=== PATIENT | male | born 1960 | race Caucasian/White ===

== ENCOUNTER 2017-08-12 14:43 | Outpatient (CLI) | payer BC | END 2017-08-12 14:44 | disposition home or self-care (01) | LOC: LABBT 14:43 | PROVIDERS: ATTEND Neurological Surgery | DX: Z01.818 Encounter for other preprocedural examination (principal); M54.12 Radiculopathy, cervical region | CPT/HCPCS: 93005; 93010 ==

== ENCOUNTER 2017-08-17 05:54 | Day surgery (SDC) | payer BC ==
[2017-08-12 15:07] VITALS: BMI 26.6
--- NOTE | 2017-08-16 21:54 | HP ---
HISTORY OF PRESENT ILLNESS: Mr. Starr is known to us for previous consultation for cervical ra diculopathy, returns with C-spine MRI from [facility], which reveals scattered foraminal stenos is, most significantly at C5 through C7. These fit his patterns of both C6 and C7 radiculopathy and he presents for discussion of possible surgery. He has treated this with a remote injections previ ously, but also physical therapy and chiropractics and does not feel it helped much and would like t o pursue the surgery if possible. PAST MEDICAL HISTORY: TMJ, back problems, neck problems, seasonal allergies, hypertension. ALLERGIES: To TYPHOID VACCINE, TETANUS VACCINE. PHYSICAL EXAMINATION: GENERAL: Patient is alert and oriented x3. NEUROLOGIC: Gait is normal. No ataxia. Upper extremity motor exam is normal. ASSESSMENT: Cervical radiculopathy. PLAN: Patient met with Dr. Hager, reviewed imaging, ultimately advocated for a C5 through C7 ACDF. He explained to the patient the risks, benefits, and alternatives to the procedure. The patient ex pressed understanding and would like to move forward with surgery as discussed. The patient is ment ally competent and capable of making medical decisions for himself and we will move forward with gina demarco as planned. Caleb Sweet PA-C, dictating for Dr. Hager.
[2017-08-17] MEDS ORDERED: Midazolam HCl 2 mg/2 ml Vial ONE (06:19)
[2017-08-17] MEDS ORDERED: Fentanyl 100 MCG/2 ML VIAL ONE ×4 (06:19→10:54)
[2017-08-17] MEDS ORDERED: Sodium Chloride 0.9% 0 ML ONE (07:14)
[2017-08-17] MEDS ORDERED: Thrombin 5000 UNITS/5 ML VIAL ONE (07:14)
[2017-08-17] MEDS ORDERED: Propofol 200 MG/20 ML VIAL ONE (07:56)
[2017-08-17] MEDS ORDERED: ePHEDrine/0.9% NaCl/PF SYRINGE 50 mg/10 ml ONE (07:56)
[2017-08-17] MEDS ORDERED: Lidocaine 2% PF 10 ML AMP (For Epidural Use) ONE (07:56)
[2017-08-17] MEDS ORDERED: Dexamethasone 20 MG/5 ML VIAL ONE (07:56)
[2017-08-17] MEDS ORDERED: PHENYLEPHRINE-NS 100 MCG/ML 10 ML SYRINGE ONE (07:56)
[2017-08-17] MEDS ORDERED: Ondansetron HCl/PF 4 MG/2 ML Vial ONE (07:56)
[2017-08-17] MEDS ORDERED: Glycopyrrolate 0.2 MG/ML 5 ML SYRINGE ONE (07:56)
--- NOTE | 2017-08-17 08:22 | PRG ---
DATE OF SERVICE: 08/17/2017 SUBJECTIVE: Mr. Starr is a 57-year-old gentleman known to us for an outpatient evaluation for cervical radiculopathy. Caleb Sweet PA-C met with him in the clinic. I talked to him on the p jef and this morning, I met with him in person prior to surgery to discuss his imaging and his diag nosis. His symptoms and the planned surgical procedure, which is a 2-level ACDF, spanning C5-C7. I reviewed with him all of these details. I answered all of his questions. He did offer informed co nsent after reviewing with him all the risks, benefits and alternatives to the surgical procedure. We will move forward accordingly this morning with an anterior cervical diskectomy and fusion at C5- C7.
--- NOTE | 2017-08-17 09:17 | OP ---
DATE OF PROCEDURE: 08/17/2017 SURGEON: Andreas Hager M.D. LABOR/EXCAVATOR: Caleb Sweet PA-C. INDICATION: Pain. PREOPERATIVE DIAGNOSIS: Cervical radiculopathy. PROCEDURE PERFORMED: Anterior cervical discectomy and fusion, spanning C5-C7. ANESTHESIA: General. TECHNIQUE: The patient was brought into the operating room and placed under general anesthesia. He was placed on the table in the supine position. A transverse incision was planned over the lateral aspect of the neck on the right. After prepping and draping and after an appropriate operative nancy se, the incision was created. The underlying platysma muscles identified and incised. A blunt tiss ue plane anterior to the sternocleidomastoid muscle was used to gain access to the prevertebral spac e. After placing self-retaining retractors and confirming the appropriate location, an annulotomy w as performed in the C6-C7 disk space. All disk material as well as anterior and posterior osteophyt es were removed. After complete decompression, a 6 mm lordotic PEEK cage packed with allograft and autograft material was placed within the interbody space. We then redirected our attention to the l evel above at C5-C6. An annulotomy was performed in the disk. All disk material as well as osteoph ytes were removed. After complete decompression, a 6 mm lordotic PEEK cage packed with allograft an d autograft material was placed within the interbody space. An anterior cervical plate was then fas hioned in front of the spine and secured with a total of 5 screws. The wound was irrigated. Hemost asis was maintained throughout. The wound was then closed in anatomic layers and a pressure dressin g was applied. There were no known procedural complications.
[2017-08-17] MEDS ORDERED: Acetaminophen/Codeine 30-300mg Tablet ONE (11:38)
== END 2017-08-17 14:30 | disposition home or self-care (01) ==
LOC: SDC 05:54
PROVIDERS: ATTEND Neurological Surgery
PROC: 0RT30ZZ Resection of Cervical Vertebral Disc, Open Approach (ICD-10-PCS; principal; 2017-08-17)
PROC: 0RG2070 Fusion of 2 or more Cervical Vertebral Joints with Autologous Tissue Substitute, Anterior Approach, Anterior Column, Open Approach (ICD-10-PCS; principal; 2017-08-17)
PROC: 0RG20A0 Fusion of 2 or more Cervical Vertebral Joints with Interbody Fusion Device, Anterior Approach, Anterior Column, Open Approach (ICD-10-PCS; principal; 2017-08-17)
DX: M54.12 Radiculopathy, cervical region (principal); M26.609 Unspecified temporomandibular joint disorder, unspecified side; I10 Essential (primary) hypertension; Z79.899 Other long term (current) drug therapy; Z88.7 Allergy status to serum and vaccine; Z88.6 Allergy status to analgesic agent
CPT/HCPCS: 76001; 96374; A4216; C1713; J1100; J1170; J2001; J2250; J2405; J2704; J3010; J3490

== ENCOUNTER 2017-09-29 08:04 | Outpatient (CLI) | payer BC ==
--- NOTE | 2017-09-29 09:28 | RAD ---
CERVICAL SPINE THREE VIEWS: History: 57-year-old male with cervical radiculopathy, prior neck surgery. FINDINGS: Anterior cervical fusion changes at C5, C6, and C7. Minimal anterolisthesis of C7 on T1. No preverte bral soft tissue swelling. IMPRESSION: Minimal anterolisthesis of C7 on T1 which was not definitely apparent at the time of the prior MRI e xamination of 02-25-08. Anterior cervical fusion changes at C5, C6, and C7. POS: AFTAB
== END 2017-09-29 08:05 | disposition home or self-care (01) ==
LOC: TBSIIMAG 08:04
PROVIDERS: ATTEND Neurological Surgery
DX: M54.12 Radiculopathy, cervical region (principal); M43.12 Spondylolisthesis, cervical region; Z98.1 Arthrodesis status
CPT/HCPCS: 72040

== ENCOUNTER 2020-04-10 14:44 | Outpatient (CLI) | payer OTHER ==
--- NOTE | 2020-04-10 16:00 | MRI ---
Exam: MRI cervical spine without contrast HISTORY: Cervical radiculopathy, neck pain with bilateral shoulder pain. Previous cervical fusion. COMPARISON: 02/25/2008 FINDINGS: Cervical fusion from C5 through C7 with associated metallic susceptibly artifact. Limited evaluation of the marrow signal at these levels. Remaining cervical spine and upper thoracic spine demonstrate appropriate T1 marrow signal intensity. No fracture. No significant STIR hyperintensity t o suggest vertebral body edema or ligamentous injury. Spondylolisthesis: 3.1 mm of anterolisthesis of C7 upon T1 Visualized brain parenchyma, cervicomedullary junction, cervical cord and the upper thoracic cord h ave a normal size and signal intensity C2-C3: No significant central canal stenosis. Right neural foramen is patent. Mild left foraminal aby rowing due to uncovertebral and facet hypertrophy C3-C4: Broad-based disc bulge effaces the thecal sac. Minimal contact upon the ventral cord. Mild everardo tral canal stenosis without cord hyperintensity. Mild bilateral foraminal narrowing due to uncovertebral hypertrophy C4-C5: Broad-based disc bulge abuts the thecal sac. Subarachnoid space is nearly effaced. Minimal con tact upon the cervical cord. Mild central canal stenosis without cord signal abnormality. Moderate to severe right and moderate left foraminal narrowing due to uncovertebral hypertrophy. Right facet h ypertrophy contributes right neural foraminal narrowing C5-C6: Broad-based osteophyte ridge with a right paracentral component. Moderate central canal stenos is. Moderate to severe right and moderate left foraminal narrowing due to uncovertebral hypertrophy C6-C7: Broad-based osteophyte ridge abuts the thecal sac. Mild central canal stenosis. Moderate bilat eral neural foraminal narrowing C7-T1: No significant central canal stenosis. Mild bilateral neural foraminal narrowing. IMPRESSION: 1 . Cervical fusion from C5 through C7. 2. Grade 1 anterolisthesis of C7 upon T1 3. Varying degrees of central canal stenosis as described above. 4. Multilevel significant neural foraminal narrowing as detailed above. Transcribed Date/Time: 04/10/2020 6:29 PM
== END 2020-04-10 14:45 | disposition home or self-care (01) ==
LOC: TBSIIMAG 14:44
PROVIDERS: ATTEND Neurological Surgery
DX: M54.12 Radiculopathy, cervical region (principal); M43.13 Spondylolisthesis, cervicothoracic region; M48.02 Spinal stenosis, cervical region; M48.03 Spinal stenosis, cervicothoracic region; Z98.1 Arthrodesis status
CPT/HCPCS: 72141

== ENCOUNTER 2020-05-21 05:51 | Outpatient (CLI) | payer OTHER ==
[2020-05-22 13:10] LABS: SARS-CoV-2 MS2 Positive; SARS-CoV-2 N Gene Negative; SARS-CoV-2 S Gene Negative; SARS-CoV-2 orf1ab Negative
== END 2020-05-21 05:52 | disposition home or self-care (01) ==
LOC: LABBT 05:51
PROVIDERS: ATTEND Neurological Surgery
DX: Z01.812 Encounter for preprocedural laboratory examination (principal); Z11.59 Encounter for screening for other viral diseases; M54.12 Radiculopathy, cervical region
CPT/HCPCS: 87635; U0003

== ENCOUNTER 2020-05-21 10:30 | Inpatient (IN) | payer OTHER ==
[2020-05-16 11:50] VITALS: BMI 23.6
--- NOTE | 2020-05-23 06:20 | HP ---
HISTORY OF PRESENT ILLNESS: Mr. Starr is a 60-year-old man, known to us for prior ACDF from C5-C7, who returns now with recurrent pains and numbness in the bilateral upper extremities. He gets spasmic pains in the triceps and down into the hands with numbness distally in the fingers. He has been treating this with physical therapy, home exercises, and some medications. He is not on pain management, as in the past, as this has failed him. He returns now with a new C-spine MRI, which reveals stenosis and narrowing at the C7-T1 foramina bilaterally, that fits well with what presumes to be a pattern of pain bilateral upper extremities. PAST MEDICAL HISTORY: Significant for; 1. Hypothyroidism. 2. Hypercholesterolemia. 3. Headaches. 4. Hypertension. 5. Osteoarthritis. 6. Seasonal allergies. PAST SURGICAL HISTORY: 1. Sinus surgery. 2. Tonsillectomy. 3. ACDF. CURRENT MEDICATIONS: 1. Levothyroxine. 2. Losartan. 3. Rosuvastatin. 4. Loratadine. 5. Aleve. ALLERGIES: 1. DICLOFENAC. 2. PREDNISONE. 3. TETANUS VACCINE. PHYSICAL EXAMINATION: GENERAL: The patient is alert and oriented x3. MUSCULOSKELETAL: Cervical range of motion is limited secondary to pain. 5/5 strength in bilateral upper extremities all movements. ASSESSMENT: Cervical radiculopathy. PLAN: Dr. Hager met with the patient, reviewed imaging, and advocated for C7-T1 ACDF. He explained to the patient about risks, benefits, and alternatives to the procedure. The patient expressed understanding and elected to move forward with surgery as discussed. I do believe the patient is mentally competent and capable of making medical decisions for himself. We will move forward with surgery as planned. Job ID: [id number]
[2020-05-23] MEDS ORDERED: Thrombin 5000 UNITS/5 ML VIAL ONE (06:33)
[2020-05-23] MEDS ORDERED: Fentanyl 100 MCG/2 ML VIAL ONE ×2 (07:44→08:31)
[2020-05-23] MEDS ORDERED: Midazolam HCl 2 mg/2 ml Vial ONE (07:44)
[2020-05-23] MEDS ORDERED: Famotidine/PF 20 mg/2ml Vial ONE (07:44)
[2020-05-23] MEDS ORDERED: Tamsulosin HCl 0.4 MG CAP ONE (10:02)
--- NOTE | 2020-05-23 10:30 | OP ---
DATE OF PROCEDURE: 05/23/2020 JAVA LEAD ARCHITECT: Caleb Sweet PA-C INDICATION: Pain. DIAGNOSIS: Cervical spondylolisthesis with radiculopathy. PROCEDURES PERFORMED: Anterior cervical diskectomy and fusion, C7-T1; exploration of fusion and removal of hardware spanning C5 through C7. ANESTHESIA: General. DESCRIPTION OF PROCEDURE: The patient was brought into the operating room and placed under general anesthesia. He was placed on the table in the supine position. A transverse incision was planned on the right just above the collarbone. After prepping and draping and after an appropriate preoperative pause, the incision was created. The underlying platysma muscle was identified as was scar tissue from the patient's prior surgical procedure. An anterior cervical plane was established anterior to the sternocleidomastoid muscle, where we were able to gain access to the C7-T1 space. An annulotomy was performed in the disk space. All disk material was removed as were anterior and posterior osteophytes. After completing the decompression, an 8-mm lordotic PEEK cage packed with allograft and autograft material was placed within the interbody space. We then redirected our attention to the plate placed above, where we identified the plate as well as 5 screws that were placed previously. All the hardware was removed. A single anterior cervical plate was then fashioned to the front of the spine spanning C7 through T1 and secured with 4 fixed screws. Midline and lateral structures were inspected and found to be free from significant trauma. The wound was irrigated. Hemostasis was maintained throughout. The wound was then closed in anatomic layers, and a pressure dressing was applied. There were no known procedural complications. Job ID: [id number]
[2020-05-23] MEDS ORDERED: EPHEDRINE 25 MG/5 ML SYRINGE ONE (10:54)
[2020-05-23] MEDS ORDERED: Glycopyrrolate 0.2 MG/ML 5 ML SYRINGE ONE (10:54)
[2020-05-23] MEDS ORDERED: Ondansetron PF 4 MG/2 ML Vial ONE (10:54)
[2020-05-23] MEDS ORDERED: Lidocaine 1% PF 5 ML VIAL ONE (10:54)
[2020-05-23] MEDS ORDERED: PROPOFOL 200 MG/20 ML VIAL ONE (10:54)
[2020-05-23] MEDS ORDERED: PHENYLEPHRINE-NS 100 MCG/ML 10 ML SYRINGE ONE (10:54)
[2020-05-23] MEDS ORDERED: Rocuronium Bromide 10 MG/ML (10ML VIAL) ONE (10:54)
[2020-05-23] MEDS ORDERED: Ketorolac Tromethamine 30 MG/ML VIAL ONE (10:54)
[2020-05-23] MEDS ORDERED: Dexamethasone 20 MG/5 ML VIAL ONE (10:54)
--- NOTE | 2020-05-23 12:51 | EKG ---
Test Reason : PREOP Blood Pressure : / mmHG Vent. Rate : 090 BPM Atrial Rate : 090 BPM P-R Int : 138 ms QRS Dur : 084 ms QT Int : 358 ms P-R-T Axes : 074 043 049 degrees QTc Int : 437 ms Normal sinus rhythm Normal ECG When compared with ECG of 12-AUG-2017 15:26, T wave inversion no longer evident in Inferior leads Confirmed by MARQUES TYSON, DR. Maravilla ([id number]) on 05/23/2020 12:51:06 PM Referred By: EDILIA Confirmed By:DR. Taiwo MOHAN MD
== END 2020-05-23 19:05 | disposition home or self-care (01) | DRG 473 ==
LOC: SURG A 05-23 06:12
PROVIDERS: ADMIT Neurological Surgery; ATTEND Neurological Surgery
PROC: 0RG10A0 Fusion of Cervical Vertebral Joint with Interbody Fusion Device, Anterior Approach, Anterior Column, Open Approach (ICD-10-PCS; principal; 2020-05-23)
PROC: 0RB30ZZ Excision of Cervical Vertebral Disc, Open Approach (ICD-10-PCS; 2020-05-23)
PROC: 0RP104Z Removal of Internal Fixation Device from Cervical Vertebral Joint, Open Approach (ICD-10-PCS; 2020-05-23)
DX: M43.12 Spondylolisthesis, cervical region (principal); M54.12 Radiculopathy, cervical region; I10 Essential (primary) hypertension; J30.2 Other seasonal allergic rhinitis; I25.10 Atherosclerotic heart disease of native coronary artery without angina pectoris; E78.5 Hyperlipidemia, unspecified; M19.90 Unspecified osteoarthritis, unspecified site; E78.00 Pure hypercholesterolemia, unspecified; E03.9 Hypothyroidism, unspecified; Z88.7 Allergy status to serum and vaccine; Z88.8 Allergy status to other drugs, medicaments and biological substances
CPT/HCPCS: 76000; 93005; 93010; C1713; C1776; J0690; J2250; J3010; S0028

== ENCOUNTER 2021-08-13 13:39 | Outpatient (CLI) | payer OTHER | END 2021-08-13 13:40 | disposition home or self-care (01) | LOC: TBSIIMAG 13:39 | PROVIDERS: ATTEND Neurological Surgery | DX: M47.22 Other spondylosis with radiculopathy, cervical region (principal); M47.23 Other spondylosis with radiculopathy, cervicothoracic region; M48.02 Spinal stenosis, cervical region; M48.03 Spinal stenosis, cervicothoracic region; Z98.1 Arthrodesis status | CPT/HCPCS: 72156 ==

== ENCOUNTER 2021-09-06 15:19 | Outpatient (CLI) | payer OTHER ==
[2021-09-07 00:49] LABS: SARS-CoV-2 PCR by NAA Not Detected (NotDetected)
== END 2021-09-06 15:20 | disposition home or self-care (01) ==
LOC: LABBT 15:19
PROVIDERS: ATTEND Neurological Surgery
DX: Z01.818 Encounter for other preprocedural examination (principal); M54.12 Radiculopathy, cervical region; Z20.822 Contact with and (suspected) exposure to COVID-19
CPT/HCPCS: 93005; 93010; U0003; U0005

== ENCOUNTER 2021-09-11 06:41 | Day surgery (SDC) | payer OTHER ==
[2021-09-10 11:12] VITALS: BMI 24.5
[2021-09-11] MEDS ORDERED: ceFAZolin 2 GM/DEX 5% 100 ML BAG ONE ×2 (07:58→12:39)
[2021-09-11] MEDS ORDERED: Thrombin 5000 UNITS/5 ML VIAL ONE (08:02)
[2021-09-11] MEDS ORDERED: Fentanyl 250 MCG/5 ML VIAL ONE (08:11)
[2021-09-11] MEDS ORDERED: Rocuronium Bromide 10 MG/ML (10ML VIAL) ONE (08:56)
[2021-09-11] MEDS ORDERED: PROPOFOL 200 MG/20 ML VIAL ONE (08:56)
[2021-09-11] MEDS ORDERED: Ondansetron PF 4 MG/2 ML Vial ONE (08:56)
[2021-09-11] MEDS ORDERED: Lidocaine 1% PF 5 ML VIAL ONE (08:56)
[2021-09-11] MEDS ORDERED: ePHEDrine 50 MG/ML VIAL ONE (08:56)
[2021-09-11] MEDS ORDERED: Dexamethasone 20 MG/5 ML VIAL ONE (08:56)
[2021-09-11] MEDS ORDERED: SUGAMMADEX SODIUM 200 MG/2 ML VIAL ONE (10:12)
[2021-09-11] MEDS ORDERED: Fentanyl 100 MCG/2 ML VIAL ONE (10:48)
[2021-09-11] MEDS ORDERED: Tamsulosin HCl 0.4 MG CAP ONE (10:48)
[2021-09-11] MEDS ORDERED: Sodium Chloride 0.9% 10 ML ONE (13:31)
== END 2021-09-11 15:45 | disposition home or self-care (01) ==
LOC: SDC 06:41
PROVIDERS: ATTEND Neurological Surgery
PROC: 0RG10A0 Fusion of Cervical Vertebral Joint with Interbody Fusion Device, Anterior Approach, Anterior Column, Open Approach (ICD-10-PCS; principal; 2021-09-11)
DX: M54.12 Radiculopathy, cervical region (principal); M48.02 Spinal stenosis, cervical region; M25.78 Osteophyte, vertebrae; E78.5 Hyperlipidemia, unspecified; M19.90 Unspecified osteoarthritis, unspecified site; G43.909 Migraine, unspecified, not intractable, without status migrainosus; E07.9 Disorder of thyroid, unspecified; Z79.899 Other long term (current) drug therapy; Z88.6 Allergy status to analgesic agent; Z88.7 Allergy status to serum and vaccine; Z98.1 Arthrodesis status
CPT/HCPCS: 76000; C1713; C1776; J1100; J2405; J2704; J3010; J3490

== ENCOUNTER 2022-09-11 09:32 | Outpatient (CLI) | payer OTHER ==
[2022-09-11] MEDS ORDERED: Magnevist 469MG/ML 20 ML VIAL ONE (14:12)
== END 2022-09-11 09:33 | disposition home or self-care (01) ==
LOC: TBSIIMAG 09:32
PROVIDERS: ATTEND Neurological Surgery
DX: M54.2 Cervicalgia (principal); M47.812 Spondylosis without myelopathy or radiculopathy, cervical region; Z98.1 Arthrodesis status
CPT/HCPCS: 72156; A9579

== ENCOUNTER 2022-11-05 07:44 | Day surgery (SDC) | payer OTHER ==
[2022-11-04 12:05] VITALS: BMI 24.6
[2022-11-05] MEDS ORDERED: Bupivacaine HCl 0.5%/Epinephrine 1:200,000/PF 30 ml Vial ONE (10:09)
[2022-11-05] MEDS ORDERED: Thrombin 5000 UNITS/5 ML VIAL ONE (10:09)
[2022-11-05] MEDS ORDERED: Sodium Chloride 0.9% 100 ML ONE ×2 (10:35→14:48)
[2022-11-05] MEDS ORDERED: CEFAZOLIN 2 GM VIAL ONE ×2 (10:35→14:48)
[2022-11-05] MEDS ORDERED: HYDROmorphone 2 MG/ML VIAL ONE (10:40)
[2022-11-05] MEDS ORDERED: Ondansetron PF 4 MG/2 ML Vial ONE (10:43)
[2022-11-05] MEDS ORDERED: Calcium Chloride 1 GM/10 ML Abboject SYRINGE ONE (10:43)
[2022-11-05] MEDS ORDERED: Dexamethasone 20 MG/5 ML VIAL ONE (10:43)
[2022-11-05] MEDS ORDERED: Lidocaine 1% PF 5 ML VIAL ONE (10:43)
[2022-11-05] MEDS ORDERED: PROPOFOL 200 MG/20 ML VIAL ONE (10:43)
[2022-11-05] MEDS ORDERED: ePHEDrine 50 MG/ML VIAL ONE (10:43)
[2022-11-05] MEDS ORDERED: Rocuronium Bromide 10 MG/ML (10ML VIAL) ONE (10:43)
[2022-11-05] MEDS ORDERED: PHENYLEPHRINE-NS 100 MCG/ML 10 ML SYRINGE ONE (10:43)
[2022-11-05] MEDS ORDERED: Ketorolac Tromethamine 30 MG/ML VIAL ONE (10:43)
[2022-11-05] MEDS ORDERED: Midazolam HCl 2 mg/2 ml Vial ONE (11:48)
[2022-11-05] MEDS ORDERED: SUGAMMADEX SODIUM 200 MG/2 ML VIAL ONE (13:06)
[2022-11-05] MEDS ORDERED: Acetaminophen/Codeine 30-300mg Tablet ONE (14:30)
== END 2022-11-05 17:34 | disposition home or self-care (01) ==
LOC: SDC 07:44
PROVIDERS: ATTEND Neurological Surgery
PROC: 01N10ZZ Release Cervical Nerve, Open Approach (ICD-10-PCS; principal; 2022-11-05)
DX: M48.02 Spinal stenosis, cervical region (principal); M54.12 Radiculopathy, cervical region; E78.5 Hyperlipidemia, unspecified; M19.90 Unspecified osteoarthritis, unspecified site; E07.9 Disorder of thyroid, unspecified; I10 Essential (primary) hypertension; Z79.890 Hormone replacement therapy; Z79.899 Other long term (current) drug therapy; Z88.6 Allergy status to analgesic agent; Z88.7 Allergy status to serum and vaccine; Z88.8 Allergy status to other drugs, medicaments and biological substances; Z98.1 Arthrodesis status
CPT/HCPCS: J1100; J1170; J1885; J2250; J2405; J2704; J3490